=== PATIENT | female | born 1955 | race Caucasian/White ===

== ENCOUNTER 2016-10-30 16:18 | Emergency (ER) | payer BC ==
[2016-10-30 16:40] LABS: COLOR YELLOW; LEUKOCYTE ESTERASE,URINE 3+ (NEGATIVE); NITRITE,URINE NEGATIVE (NEGATIVE)
[2016-10-30 16:46] LABS: BACTERIA 1+ /hpf (NONE SEEN); MUCUS TRACE /lpf (NONE-1+); RBC,URINE 25-50 /hpf (0-3); WBC,URINE 50-182 /hpf (0-3)
--- NOTE | 2016-10-30 17:06 | EDPHY ---
H & P Stated Complaint: burning/freq/hematuria Time Seen by Provider: 10/30/16 16:29 HPI/ROS: CHIEF COMPLAINT: Urinary symptoms. HISTORY OF PRESENT ILLNESS: The patient is a 61-year-old female who presents with dysuria, frequent urination, and hematuria that began this morning. She admits mild subjective fever. These symptoms are similar to her previous UTIs. No back pain, nausea, or vomiting. No chills, chest pain, shortness of breath, palpitations, vomiting, diarrhea, headache, lightheadedness. REVIEW OF SYSTEMS: Aside from elements discussed in the HPI, a comprehensive 10-point review of systems was reviewed and is negative. PAST MEDICAL HISTORY: Migraines, UTIs. SOCIAL HISTORY: Lives in [place]. VITAL SIGNS: Reviewed by me GENERAL: Well-developed, well-nourished, resting comfortably in no respiratory distress. HEENT: Benign exam. LUNGS: Clear to auscultation bilaterally, no wheezes, rhonchi or rales. CARDIAC: Regular rate and rhythm, no rubs, murmurs or gallops. ABDOMEN: Soft, nontender, nondistended, bowel sounds normal. BACK: No CVA tenderness. EXTREMITIES: No trauma. No edema. Range of motion is normal throughout. NEURO: Alert and oriented, grossly nonfocal. SKIN: Warm and dry, no rash. PSYCHIATRIC: Normal mentation, no agitation. Portions of this note were transcribed by a medical staff manager. I personally performed a history, physical exam, medical decision making, and confirmed accuracy of information the transcribed note. Source: Patient Exam Limitations: No limitations - Personal History Current Tetanus/Diphtheria Vaccine: No - Medical/Surgical History Hx Asthma: No Hx Chronic Respiratory Disease: No Hx Diabetes: No Hx Cardiac Disease: No Hx Renal Disease: No Hx Cirrhosis: No Hx Alcoholism: No Hx HIV/AIDS: No Hx Splenectomy or Spleen Trauma: No Other PMH: mIGRAINE - Social History Smoking Status: Former smoker Constitutional: Initial Vital Signs Temperature (C) 36.8 C 10/30/16 16:21 Heart Rate 88 10/30/16 16:21 Respiratory Rate 17 10/30/16 16:21 Blood Pressure 115/76 10/30/16 16:21 O2 Sat (%) 94 10/30/16 16:21 O2 Delivery Mode Room Air Allergies/Adverse Reactions: No Known Allergies Allergy (Verified 10/30/16 16:19) Home Medications: Medication Instructions Recorded Aleve 10/30/16 Cephalexin [Keflex (RX)] 500 mg PO TID 7 Days 10/30/16 [id number] 10/30/16 Medical Decision Making ED Course/Re-evaluation: UA ordered and is consistent with UTI. Patient was placed on Keflex. Urine was cultured. She will follow up as needed. Differential Diagnosis: Differential diagnoses for the patient's symptom complex was considered including but not limited to urinary tract infection, pyelonephritis, urethritis , vaginal discharge, vaginitis, kidney stone. - Data Points Laboratory Results: 10/30/16 16:25 Urine Color YELLOW Urine Appearance MODERATELY TURBID Urine pH 6.0 (5.0-7.5) Ur Specific Ruby 1.008 (1.002-1.030) Urine Protein 1+ H (NEGATIVE) Urine Ketones NEGATIVE (NEGATIVE) Urine Blood 3+ H (NEGATIVE) Urine Nitrate NEGATIVE (NEGATIVE) Urine Bilirubin NEGATIVE (NEGATIVE) Urine Urobilinogen NEGATIVE EU EU (0.2-1.0) Ur Leukocyte Esterase 3+ H (NEGATIVE) Urine RBC 25-50 /hpf H /hpf (0-3) Urine WBC 50-182 /hpf H /hpf (0-3) Ur Epithelial Cells TRACE /lpf /lpf (NONE-1+) Urine Bacteria 1+ /hpf H /hpf (NONE SEEN) Urine Mucus TRACE /lpf /lpf (NONE-1+) Urine Glucose NEGATIVE (NEGATIVE) Departure - Departure Disposition: Home, Routine, Self-Care Clinical Impression: UTI (urinary tract infection) Qualifiers: Urinary tract infection type: site unspecified Hematuria presence: with hematuria Qualified Code(s): N39.0 - Urinary tract infection, site not specified Condition: Good Instructions: Urinary Tract Infection in Women (ED) Additional Instructions: Take Keflex as prescribed. Drink plenty of water. Follow up with your primary care provider when you return home. If you need a PCP while in [place] you have been provided the telephone number of Dr. Cummings. Return to the emergency department if you experience any serious worsening of condition. Referrals: Jose Cummings MD [Medical Doctor] - As per Instructions Prescriptions: Cephalexin [Keflex (RX)] 500 mg PO TID 7 Days Report Scribed for: Loraine Cleary Report Scribed by: Corby Friend Date of Report: 10/30/16 Time of Report: 17:01
[2016-10-30 17:23] VITALS: BP 116/69; PULSE 93; RESP 16; TEMP 97.9; O2SAT 93
== END 2016-10-30 17:23 | disposition home or self-care (01) ==
DX: N39.0 Urinary tract infection, site not specified (principal); B96.89 Other specified bacterial agents as the cause of diseases classified elsewhere; Z87.891 Personal history of nicotine dependence